=== PATIENT | female | born 1960 | race Two or more races ===

== ENCOUNTER 2018-07-09 08:51 | Day surgery (SDC) | payer OTHER ==
[2018-06-30 13:13] VITALS: BMI 36.6
[~2018-07-09 08:51] MED LIST: LIDOCAINE HCL 1%, 10 MG/ML (20ML VIAL) INF ONE
[2018-07-09] MEDS ORDERED: LIDOCAINE HCL 1%, 10 MG/ML (20ML VIAL) ONE (12:24)
[2018-07-09] MEDS ORDERED: ISOSULFAN BLUE 10 MG/ML VIAL SQ ONE (12:24)
[2018-07-09] MEDS ORDERED: KETOROLAC TROMETHAMINE 30 MG/1 ML VIAL ONE (12:27)
[2018-07-09] MEDS ORDERED: ceFAZolin SODIUM 1 GM VIAL ONE (12:27)
[2018-07-09] MEDS ORDERED: SODIUM CHLORIDE 0.9% P/F 10 ML VIAL IJ ONE (12:27)
[2018-07-09] MEDS ORDERED: LIDOCAINE HCL/PF 2% SDV 5ML VIAL ONE (12:27)
[2018-07-09] MEDS ORDERED: DEXAMETHASONE SOD PHOSPHATE 4 MG/1 ML VIAL ONE (12:27)
[2018-07-09] MEDS ORDERED: MIDAZOLAM HCL 2 MG/2 ML SINGLE DOSE VIAL ONE (12:31)
[2018-07-09] MEDS ORDERED: PROPOFOL 20 ML ONE ×7 (13:20→14:29)
[2018-07-09] MEDS ORDERED: ePHEDrine SULFATE 50 MG/1 ML AMPULE ONE (13:41)
[2018-07-09] MEDS ORDERED: ONDANSETRON 4 MG/2 ML VIAL IVPUSH PRN (15:20)
[2018-07-09] MEDS ORDERED: PROMETHAZINE HCL 25 MG/1 ML VIAL IVPUSH PRN (15:20)
[2018-07-09] MEDS ORDERED: oxyCODONE HCL 5 MG TABLET PO PRN (15:20)
[2018-07-09] MEDS ORDERED: LACTATED RINGERS SOLUTION 1,000 ML IV SCH (15:30)
[2018-07-09 15:47] VITALS: TEMP 97.5
--- NOTE | 2018-07-09 17:06 | OP ---
DATE OF OPERATION: 07/09/2018 PREOPERATIVE DIAGNOSIS: Right breast cancer. POSTOPERATIVE DIAGNOSIS: Right breast cancer. PROCEDURE: Right breast bracket wire lumpectomy and sentinel lymph node biopsy. SURGEON: Kayleigh Bustillo MD ANESTHESIA: General. ESTIMATED BLOOD LOSS: 40 mL. DRAINS: None. COMPLICATION: None. This was a sterile procedure. INDICATION: The patient presented with an abnormal mammogram that noted 2 spiculated densities with wide area of microcalcifications encompassing most of the upper outer right breast. We discussed the options of a lumpectomy, that it would be a quadrantectomy, versus a mastectomy with or without reconstruction. After much discussion, decision was to do a lumpectomy as well as a sentinel lymph node biopsy. The procedure was discussed, with all the questions answered. PROCEDURE IN DETAIL: Patient brought to [facility] in [place]. First she was taken to Breast Imaging, where bracket wires were placed by Dr. Rodriges, the radiologist, around the entire wide area of calcifications in the upper outer quadrant. Once the wires were completed, she was then brought to Nuclear Medicine, where I injected technetium sulfur colloid as an intradermal injection at the areolar border of the right breast 10 o'clock location. She was then brought to the operating room, and after induction of general anesthesia and IV antibiotics, the right breast was prepped and draped in usual sterile fashion. Then 5 mL of isosulfan blue dye was injected into the right subareolar plexus. The breast was massaged for 5 minutes. The breast and axilla were then prepped and draped in the usual sterile fashion. A 4-cm incision was made in the right axilla, carried down through the clavipectoral fascia to identify the 3 sentinel lymph nodes. The one that was the largest, and felt like the dominant node, was blue and hot. There was a 2nd smaller one that was hot but not blue, and the 3rd one that was hot and blue as well. These were all sent to Pathology for permanent section. Hemostasis assured in the axilla and there was no other blue dye radioactivity or pathologic stained lymph node in the right axilla. Therefore, next a right breast lumpectomy was performed. A radial incision was made in the right 10 o'clock location and the wires were used as a guide to get down to the area of interest. An en bloc lumpectomy was performed. Anteriorly, I took a very, almost a mastectomy margin, given that on mammography, the calcification appeared to be extending to the subareolar area. Posteriorly, I did not go down to pectoralis, however, very close to the pectoralis. This entire en bloc quadrantectomy was tagged with a long stitch lateral, short stitch superior, and sent for specimen radiograph. The clip and wire on specimen radiograph, the clip and the wire seemed to be intact within the specimen as well as there were lots of microcalcifications throughout the specimen. This was then sent to Pathology for permanent section. Hemostasis assured with electrocautery. There was a wide defect left from this rather large lumpectomy, therefore, I mobilized some tissue into the cavity and the parenchyma was approximated with interrupted 2-0 Vicryl, skin approximated with interrupted 3-0 Vicryl and running 4-0 Prolene. The axillary incision was also closed in routine fashion with interrupted 3-0 Vicryl, running 4-0 Prolene, and sterile dressing with Tegaderm was applied, as well as a Surgi-Bra. She tolerated the procedure well, was extubated in the operating room table, taken to recovery in good condition. Vince [id number]
[2018-07-09 18:14] VITALS: BP 109/68; PULSE 71
--- NOTE | 2018-07-15 12:54 | PATH ---
Surgical Pathology Report Patient Name: MANDY DONALDSON [facility]. Rec. #: [id number] /Age/Gender: 1960 (Age: 57) / F Account: [id number] Location: [facility] SURGICAL Taken: 07/09/2018 Received: 07/10/2018 Reported: 07/15/2018 Physicians: Kayleigh Bustillo M.D. Specimen(s) Received A: RIGHT AXILLARY SENTINEL LYMPH NODE (BLUE & HOT) B: RIGHT AXILLARY SENTINEL LYMPH NODE (BLUE & HOT) C: RIGHT AXILLARY SENTINEL LYMPH NODE (HOT NOT BLUE) D: RIGHT BREAST LUMPECTOMY Clinical History Invasive Ca Final Diagnosis A. LYMPH NODE, RIGHT AXILLARY SENTINEL (BLUE & HOT), EXCISION: METASTATIC CARCINOMA, INVOLVING ONE OF ONE LYMPH NODE (1/1). THE FOCUS OF METASTATIC CARCINOMA MEASURES 1.2 MM IN GREATEST DIMENSION (MICROMETASTASIS). NO EXTRANODAL EXTENSION IS IDENTIFIED. B. LYMPH NODE, RIGHT AXILLARY SENTINEL (BLUE & HOT), EXCISION: ONE LYMPH NODE, NEGATIVE FOR METASTATIC CARCINOMA (0/1). C. LYMPH NODE, RIGHT AXILLARY SENTINEL (HOT NOT BLUE), EXCISION: ONE LYMPH NODE, NEGATIVE FOR METASTATIC CARCINOMA (0/1). D. BREAST, RIGHT, LUMPECTOMY: TWO FOCI OF INVASIVE DUCTAL CARCINOMA: ONE FOCUS OF INVASIVE DUCTAL CARCINOMA IS MODERATELY DIFFERENTIATED (TUBULE SCORE: 3/3, NUCLEAR GRADE: 2/3, MITOTIC SCORE: 1/3, TOTAL SCORE: 6/9; LORRAINE, GRADE 2) AND MEASURES1.5 CM IN GREATEST DIMENSION, MICROSCOPICALLY. THE SECOND FOCUS OF INVASIVE DUCTAL CARCINOMA IS WELL DIFFERENTIATED (TUBULE SCORE: 2/3, NUCLEAR GRADE: 2/3, MITOTIC SCORE: 1/3, TOTAL SCORE: 5/9; LORRAINE, GRADE 1) AND MEASURES 1.7 CM IN GREATEST DIMENSION, MICROSCOPICALLY. DUCTAL CARCINOMA IN SITU (DCIS), CRIBRIFORM TYPE, INTERMEDIATE NUCLEAR GRADE WITH FOCAL NECROSIS IS PRESENT ADMIXED WITH FOCI OF INVASIVE CARCINOMA AND IN ADJACENT TISSUE. INVASIVE CARCINOMA IS CLOSE TO (< 1 MM) THE MEDIAL MARGIN AND AT 1.5 MM FROM THE INFERIOR MARGIN. DCIS IS CLOSE TO (< 1 MM) THE MEDIAL AND INFERIOR MARGINS. LYMPHOVASCULAR INVASION IS IDENTIFIED. CALCIFICATIONS ARE PRESENT IN ASSOCIATION WITH INVASIVE CARCINOMA , DCIS, BENIGN GLANDULAR PARENCHYMA AND BLOOD VESSEL BOWLES. PRIOR BIOPSY SITE CHANGES ARE IDENTIFIED. PATHOLOGIC STAGE (p TNM): pT1c(m) pN1mi. SE ALSO INVASIVE CARCINOMA CASE SUMMARY BELOW. Comment: Case discussed with on 07/15/18. Comments Breast Invasive Carcinoma: Surgical Pathology Case Summary (Based on AJCC TNM 8 th edition) Procedure _X_ Excision (less than total mastectomy) Specimen Laterality _X_ Right Tumor Size _X_ Greatest dimension of largest invasive focus >1 mm (millimeters): 17 mm Histologic Type _X_ Invasive carcinoma of no special type (ductal, not otherwise specified) Histologic Grade (Lorraine Histologic Score) Glandular (Acinar)/Tubular Differentiation _X_ Score 1 (>75% of tumor area forming glandular/tubular structures) to Score 2 (10% to 75% of tumor area forming glandular/tubular structures) Nuclear Pleomorphism _X_ Score 2 Mitotic Rate _X_ Score 1 Overall Grade _X_ Grade 1 (scores of 3, 4, or 5) to Grade 2 (scores of 6 or 7) Tumor Focality _X_ Multiple foci of invasive carcinoma Number of foci: 2 Sizes of individual foci: 1.7 cm, 1.5 cm Ductal Carcinoma In Situ (DCIS) _X_ DCIS is present in specimen _X_ Negative for extensive intraductal component (EIC) Margins Invasive Carcinoma Margins _X_ Uninvolved by invasive carcinoma Distance from closest margin (millimeters): < 1 mm Closest margin: medial DCIS Margins _X_ Uninvolved by DCIS Distance from closest margin (millimeters): < 1 mm Closest margin: medial, inferior Regional Lymph Nodes _X_ Involved by tumor cells Number of Lymph Nodes with Macrometastases (>2 mm): 0 Number of Lymph Nodes with Micrometastases (>0.2 mm to 2 mm and/or >200 cells): 1 Number of Lymph Nodes with Isolated Tumor Cells (=0.2 mm and =200 cells): 0 Size of Largest Metastatic Deposit (millimeters): 1.2 mm Extranodal Extension: _X_ Not identified Treatment Effect _X_ No known presurgical therapy Lymphovascular Invasion _X_ Present Pathologic Stage Classification (pTNM, AJCC 8th Edition) Primary Tumor (Invasive Carcinoma) (pT) _X_ pT1c (m): Tumor >10 mm but =20 mm in greatest dimension Regional Lymph Nodes (pN) Category (pN) _X_ pN1mi: Micrometastases (approximately 200 cells, larger than 0.2 mm, but none larger than 2.0 mm Biomarker Studies Results of ER and UT studies performed on this specimen (block D8, well differentiated carcinoma) at [facility] are as follows: ER (clone [id number] mouse monoclonal antibody by [employer]): >95 % nuclear staining with strong intensity (positive UT (clone16 mouse monoclonal antibody by [employer]) : > 95 % nuclear staining with strong intensity (positive). Results of Her2 (IHC) & Ki-67 studies performed on this specimen (block D8, well differentiated carcinoma) at [place], [place] ([id number]) are as follows: Her2 IHC (EP3 from [employer], formerly known as [id number], using Bowen Polymer Refine detection kit): 0 (negative). Ki67: ~5% (low proliferative index). ER, UT, HER2 & Ki67 studies are being performed on the focus of moderately differentiated carcinoma; the results will be reported in an addendum. Positive and negative controls (internal if applicable) show appropriate results. Formalin fixation time is within current ASCO/CAP recommendations for ER, UT and Her2 testing. Time to formalin fixation is not given. Electronically Signed Marcelina Josue M.D. Addendum Reported: 07/17/2018 Addendum Diagnosis Results of ER and UT studies performed on block D2 (moderately differentiated carcinoma) at [facility] are as follows: ER (clone [id number] mouse monoclonal antibody by [employer]) : >90 % nuclear staining with strong intensity (positive). UT (clone16 mouse monoclonal antibody by [employer]): > 90 % nuclear staining with strong intensity (positive). Results of Her2 (IHC) & Ki-67 studies performed on block D2 (moderately differentiated carcinoma) at [place], [place] ([id number]) are as follows: Her2 IHC (EP3 from [employer], formerly known as [id number], using Bowen Polymer Refine detection kit): 0 (negative). Ki-67: 5-7% (low proliferative index). Positive and negative controls (internal if applicable) show appropriate results. Formalin fixation and cold ischemic times are within current ASCO/CAP recommendations for ER, UT and Her2 testing. Marcelina Josue M.D. Addendum Reported: 08/15/2018 Addendum Diagnosis HER2 ANALYSIS BY FISH performed and interpreted at [facility] shows the following: INTERPRETATION: Negative (Block D2) Probe: Her2 2.0 Probe: CEP17 2.0 Ratio: 1.0 INTERPRETATION: Negative (Block D7) Probe: Her2 2.0 Probe: CEP17 2.0 Ratio: 1.0 Approved scoring guideline >= 2.0 = Amplified <= 2.0 = Not amplified See [facility] reports ([id number] and [id number]) for additional details. Kathy Williamson M.D. Gross Description A. Received in formalin labeled "right axillary sentinel node, blue & hot" is a 3.0 x 1.8 x 0.9 cm lymph node. The specimen is trisected and entirely submitted in 3 cassettes. B. Received in formalin labeled "right axillary sentinel lymph node, blue & hot " is a 1.1 x 0.9 x 0.5 cm lymph node with attached fat. The specimen is bisected and entirely submitted in one cassette. C. Received in formalin labeled "right axillary sentinel lymph node, hot not blue" 1.7 x 1.7 x 0.6 cm portion of hassan soft tissue. Sectioning reveals a lymph node and attached blood clot. The specimen is bisected and entirely submitted in 2 cassettes. D. Received fresh an in [employer] labeled "right breast lumpectomy," is an 8.5 x 7.0 x 4.7 cm portion of fibroadipose tissue with 3 needle localization wires present. There is a short suture marking the superior aspect and a long suture marking the lateral aspect of the specimen, per the surgeon. There is no skin or nipple present. The specimen is inked as follows: Superior blue; inferior green; anterior and lateral red; medial yellow; deep black. The specimen is serially sectioned from anterior to deep. Sectioning reveals 2 hassan, firm masses, by firm fibrous tissue with calcifications. Mass #1 is 1.8 x 1.2 x 0.9 cm and is anterior to mass #2. Mass #1 is 0.9 cm from the superior margin and 1.0 cm from the inferior margin. Mass #2 is 1.8 x 1.2 x 1.2 cm and is 0.4 cm from the deep margin, 0.9 cm from the inferior margin and 1.1 cm from the medial margin. Overlay Operator sections are submitted in fifteen cassettes as follows: 1-3-mass #1 sequentially submitted from anterior to deep (each with inferior margin); 4-5-firm fibrous tissue between mass #1 and mass #2, sequentially submitted from anterior to deep (each with inferior margin); 6-7-mass #2 sequentially submitted from anterior to deep (each with inferior margin); 8- mass #2 with inferior and medial margins; 9-10-mass #2 with deep margin; 27-26-kttqicfc margin; 13-medial margin; 14-lateral margin; 15-anterior margin. Time to formalin fixation: Not given Total formalin fixation time: Approximately 26 hours 07/10/201807/10/2018
== END 2018-07-09 18:24 | disposition home or self-care (01) ==
LOC: JASU-SURG 08:51
PROVIDERS: ATTEND Surgery
PROC: 0HBT0ZZ Excision of Right Breast, Open Approach (ICD-10-PCS; principal; 2018-07-09 13:00)
DX: C50.911 Malignant neoplasm of unspecified site of right female breast (principal)
CPT/HCPCS: 19281; 78195-TC; 82962; 88307-TC; 88342-TC; 94760; A9541

== ENCOUNTER 2018-07-29 11:19 | Day surgery (SDC) | payer OTHER ==
[2018-07-28 12:18] VITALS: BMI 36.6
[2018-07-29] MEDS ORDERED: LIDOCAINE HCL 1%, 10 MG/ML (20ML VIAL) ONE (13:04)
[2018-07-29] MEDS ORDERED: DEXAMETHASONE SOD PHOSPHATE 4 MG/1 ML VIAL ONE (13:14)
[2018-07-29] MEDS ORDERED: MIDAZOLAM HCL 2 MG/2 ML SINGLE DOSE VIAL ONE (13:14)
[2018-07-29] MEDS ORDERED: PROPOFOL 20 ML ONE ×2 (13:14)
[2018-07-29] MEDS ORDERED: ceFAZolin SODIUM 1 GM VIAL IVPB ONE (13:25)
[2018-07-29] MEDS ORDERED: LIDOCAINE HCL 1%, 10 MG/ML (20ML VIAL) NR ONE (13:38)
[2018-07-29 14:49] VITALS: TEMP 98.2
--- NOTE | 2018-07-29 15:05 | OP ---
DATE OF OPERATION: 07/29/2018 PREOPERATIVE DIAGNOSIS: Right breast carcinoma. POSTOPERATIVE DIAGNOSIS: Right breast carcinoma. PROCEDURE: Right breast re-excision lumpectomy. SURGEON: Kayleigh Sheldon MD ANESTHESIA: Local/IV sedation. ESTIMATED BLOOD LOSS: Minimal. COMPLICATIONS: None. This is a sterile procedure. INDICATION FOR PROCEDURE: Patient had a right breast lumpectomy and sentinel node biopsy that was close on the medial and inferior margin with DCIS being less than 1-mm and invasive being adequately excised. My recommendation was for a re-excision. The procedure was discussed with her and all of her questions answered. PROCEDURE IN DETAIL: Patient was brought to [facility] in [place], taken into the operating room. After IV sedation and IV antibiotics, the right breast was prepped and draped in usual sterile fashion. The area in the upper outer right breast over the prior lumpectomy incision was anesthetized with 1% lidocaine without epinephrine. The prior incision was reopened. The seroma was drained, and the cavity was entered. A new medial margin was taken which consists of the old margin and sent to Pathology for permanent section. Next, a new inferior margin was taken. I took a new right breast inferior/anterior margin and a right breast inferior/posterior margin. These were both sent to Pathology for permanent section with stitch marking the old margin. Hemostasis assured with electrocautery. The cavity was reclosed with 2-0 Vicryl. Skin approximated with interrupted 3-0 Vicryl running and running 4-0 Biosyn. A sterile dressing with Tegaderm and 4 x 4's applied. She tolerated the procedure well, was taken to recovery in good condition. KAYLEIGH SHELDON M.D. [id number]
[2018-07-29 16:26] VITALS: BP 132/70; PULSE 66
--- NOTE | 2018-08-01 16:06 | PATH ---
Surgical Pathology Report Patient Name: MANDY DONALDSON [facility]. Rec. #: [id number] /Age/Gender: 1960 (Age: 57) / F Account: [id number] Location: [facility] SURGICAL Taken: 07/29/2018 Received: 07/30/2018 Reported: 08/01/2018 Physicians: Kayleigh Bustillo M.D. Specimen(s) Received A: RIGHT BREAST NEW MEDIAL MARGIN B: RIGHT BREAST NEW INFERIOR ANTERIOR MARGIN C: RIGHT BREAST NEW INFERIOR POSTERIOR MARGIN Clinical History Invasive ductal carcinoma Final Diagnosis A. RIGHT BREAST, NEW MEDIAL MARGIN, EXCISION: BENIGN BREAST TISSUE SHOWING DUCTAL EPITHELIUM WITH REACTIVE CHANGE, ACUTE AND CHRONIC INFLAMMATION, HISTIOCYTIC REACTION INCLUDING MULTINUCLEATED GIANT CELLS AT PRIOR BIOPSY SITE. NEGATIVE FOR CARCINOMA. B. RIGHT BREAST, NEW INFERIOR- ANTERIOR MARGIN, EXCISION: RESIDUAL INVASIVE DUCTAL CARCINOMA, MEASURING 1 MM IN GREATEST DIMENSION. THE NEW MARGIN IS NEGATIVE FOR CARCINOMA. INVASIVE CARCINOMA IS AT 8MM FROM THE NEW MARGIN. REACTIVE CHANGES AT PRIOR BIOPSY SITE IDENTIFIED. Comment: Immunohistochemical stains performed and interpreted at [facility] show the following results: smooth muscle myosin heavy chain and p63 show loss of the myoepithelial cell layer in the areas of invasive carcinoma. Positive and negative controls (internal if applicable) show appropriate results. C. RIGHT BREAST, NEW INFERIOR-POSTERIOR MARGIN, EXCISION: BENIGN BREAST TISSUE SHOWING FIBROSIS AND HISTIOCYTIC REACTION INCLUDING MULTINUCLEATED GIANT CELLS AT PRIOR BIOPSY SITE. NEGATIVE FOR CARCINOMA. Electronically Signed Lilibeth Nava M.D. Gross Description A. Received in formalin, labeled "right breast, new medial margin" is a 4.3 x 3.2 x 0.8 cm portion of fibrofatty tissue with a stitch marking the old margin, per the surgeon. The margin the opposite the stitch is inked black. The specimen is serially sectioned and entirely submitted in seven cassettes. B. Received in formalin, labeled "right breast, new inferior-anterior margin" is a 4.5 x 4 x 1.3 cm portion of fibrofatty tissue with a stitch marking the old margin, per the surgeon. The margin the opposite the stitch is inked black. The specimen is serially sectioned and entirely submitted in ten cassettes. A. Received in formalin, labeled "right breast, new inferior-posterior margin" is a 4.5 x 3 x 0.8 cm portion of fibrofatty tissue with a stitch marking the old margin, per the surgeon. The margin the opposite the stitch is inked black. The specimen is serially sectioned and entirely submitted in seven cassettes. AE/07/30/2018 ebram/07/30/2018
== END 2018-07-29 16:20 | disposition home or self-care (01) ==
LOC: JASU-SURG 11:19
PROVIDERS: ATTEND Surgery
PROC: 0HBT0ZZ Excision of Right Breast, Open Approach (ICD-10-PCS; principal; 2018-07-29 13:00)
DX: C50.911 Malignant neoplasm of unspecified site of right female breast (principal); I10 Essential (primary) hypertension; E11.9 Type 2 diabetes mellitus without complications; Z79.84 Long term (current) use of oral hypoglycemic drugs
CPT/HCPCS: 88307-TC; 88341-TC; 88342-TC; 94760